=== PATIENT | male | born 1960 | race Caucasian/White ===

== ENCOUNTER → 2020-02-25 | Outpatient (CLI) | payer OTHER ==
[2020-02-25 14:25] VITALS: BP 134/79; PULSE 64; RESP 16; TEMP 98.2; BMI 52.4
--- NOTE | 2020-02-25 15:12 | P.HPBAR ---
Bariatric H&P - History & Physicial H&P Date: 02/25/20 History & Physicial: Visit/CC: Initial Visit Patient initial contact: Initial weight: 156.092 kg Initial weight in pounds: 344.13 Height: 5 ft 8 in Initial BMI: 52.3 Last weight: Current weight: 156.489 kg Current weight in pounds: 345.00 Current BMI: 52.4 [place] body weight (based on NIH guidelines): 69.853 kg Excess body weight loss: The patient is a 59 year-old M who presents for Bariatric Assessment. This is a 59-year-old male presents today for preoperative consultation for sleeve gastrectomy. Patient is morbidly obese. His BMI is 53. He has had lifetime problems obesity. Past Medical History Smoking Status: Former smoker Surgical - Exam Vital Signs Temp Pulse Resp BP 98.2 F 64 16 134/79 02/25/20 14:12 02/25/20 14:12 02/25/20 14:12 02/25/20 14:12 - General well developed, well nourished, no distress - Eyes PERRL - ENT normal pinna - Neck no masses - Respiratory normal expansion - Cardiovascular Rhythm: regular - Abdomen Abdomen: soft, non tender Bariatric Assessment & Plan Plan: RBC, BMI of 53. Patient will undergo EGD. We went over the risks and benefits of sleeve gastrectomy. He he has an excellent understanding of the gastric sleeve. Facial follow-up after his EGD performed. Bariatric Checklist Checklist: Plan: Checklist: EGD: 1. Hiatal hernia: 2. H. Pylori: HgbA1c: Vitamin D: Smoking: Primary care physician referral: [facility] Psychiatry clearance: Cardiology clearance: Sleep study: Diet journal: VTE risk score: VTE risk level: Rehab needs at discharge:
== END | disposition home or self-care (01) ==
LOC: BARWHC3 13:56
PROVIDERS: ATTEND Surgery
DX: Z48.815 Encounter for surgical aftercare following surgery on the digestive system (principal); E66.01 Morbid (severe) obesity due to excess calories; Z68.43 Body mass index [BMI] 50.0-59.9, adult; Z98.84 Bariatric surgery status
CPT/HCPCS: 99201

== ENCOUNTER → 2020-02-29 | Outpatient (CLI) | payer OTHER ==
[2020-02-29 11:51] LABS: HCT 45.2 % (39.0-53.0); HGB 13.8 gm/dL (13.0-17.5); Hypochromasia Slight; MCH 26.9 pg (25.0-35.0); MCHC 30.6 g/dL (31.0-37.0); MCV 88.1 fL (80.0-100.0); Mean Platelet Volume 9.2; Platelet Count 213 k/uL (150-450); RBC 5.13 m/uL (4.30-5.90); RDW 13.7 % (11.5-15.5); WBC 7.7 k/uL (3.8-10.6)
[2020-02-29 16:36] LABS: African American GFR (CKD) 95.7 (60.0-200.0); Non-African American GFR(CKD) 82.6 (60.0-200.0); Potassium 4.9 mmol/L (3.5-5.5); Total Bilirubin 0.5 mg/dL (0.2-1.2)
[2020-02-29 17:28] LABS: Folate, Serum 11.8 ng/mL
[2020-02-29 20:34] LABS: Hemoglobin A1C 6.6 % (4.0-6.0)
== END | disposition home or self-care (01) ==
LOC: LABWHC1 10:26
PROVIDERS: ATTEND Surgery
DX: E88.81 Metabolic syndrome and other insulin resistance (principal); E55.9 Vitamin D deficiency, unspecified
CPT/HCPCS: 36415; 80053; 82306; 82607; 82746; 83036; 84425; 85027; 93005

== ENCOUNTER 2020-03-21 06:44 | Day surgery (SDC) | payer OTHER ==
[2020-03-19 15:41] VITALS: BMI 49.4
[~2020-03-21 06:44] MED LIST: LACTATED RINGERS 1,000 ML IV SCH; LIDOCAINE 1% (10MG/ML) FOR IV START INTRADERMA PRN
[2020-03-21 07:16] VITALS: PULSE 81; TEMP 97.7
[2020-03-21 07:23] LABS: Glucose,Whole Blood 200 mg/dL (75-99)
[2020-03-21] MEDS ORDERED: MIDAZOLAM 2 MG/2 ML VIAL ONE (07:53)
[2020-03-21] MEDS ORDERED: LIDOCAINE 1% INJ 10MG/ML (20 ML MDV) ONE (07:53)
[2020-03-21] MEDS ORDERED: GLYCOPYRROLATE 0.2 MG/ML 2 ML VIAL ONE (07:53)
[2020-03-21] MEDS ORDERED: PROPOFOL 10 MG/ML 20 ML VIAL IV ONE (07:53)
[2020-03-21] MEDS ORDERED: KETAMINE 10 MG/ML 20 ML VIAL ONE (07:53)
--- NOTE | 2020-03-21 07:57 | P.GSHP ---
History of Present Illness H&P Date: 03/21/20 Chief Complaint: GERD, morbid obesity This a 59-year-old male undergoing workup for sleeve gastrectomy. Patient presents today for EGD. He's had issues with GERD. Past Medical History Past Medical History: Diabetes Mellitus, Hypertension, Thyroid Disorder History of Any Multi-Drug Resistant Organisms: None Reported Past Surgical History: Hernia Repair, Orthopedic Surgery Additional Past Surgical History / Comment(s): BILAT KNEE SX. RFA LOWER BACK NERVES. COLONOSCOPY Past Anesthesia/Blood Transfusion Reactions: No Reported Reaction Smoking Status: Former smoker - Past Family History Mother Family Medical History: Cancer Medications and Allergies Home Medications Medication Instructions Recorded Confirmed Type Ergocalciferol (Vitamin D2) 5,000 mg PO DAILY 03/06/20 03/19/20 History [Vitamin D2] Levothyroxine Sodium [Synthroid] 75 mcg PO DAILY 03/06/20 03/19/20 History Losartan [Cozaar] 50 mg PO DAILY 03/06/20 03/19/20 History glipiZIDE [Glucotrol] 10 mg PO BID 03/06/20 03/19/20 History metFORMIN HCL [Glucophage] 500 mg PO BID 03/06/20 03/19/20 History Allergies Allergy/AdvReac Type Severity Reaction Status Date / Time Penicillins Allergy Rash/Hives Verified 03/21/20 07:06 Surgical - Exam Vital Signs Temp Pulse Resp BP Pulse Ox 97.7 F 81 16 154/72 96 03/21/20 07:14 03/21/20 07:14 03/21/20 07:14 03/21/20 07:14 03/21/20 07:14 BMI 50 - General well developed, well nourished, no distress - Eyes PERRL - ENT normal pinna - Neck no masses - Respiratory normal expansion - Cardiovascular Rhythm: regular - Abdomen Abdomen: soft, non tender Results - Labs Abnormal Lab Results - Last 24 Hours (Table) 03/21/20 Range/Units 07:19 POC Glucose (mg/dL) 200 H (75-99) mg/dL Assessment and Plan Assessment: GERD we'll perform EGD Morbid obesity
--- NOTE | 2020-03-21 08:05 | P.OP ---
Date of Procedure: 03/21/20 Preoperative Diagnosis: Morbid obesity GERD Postoperative Diagnosis: Morbid obesity Antral gastritis Procedure(s) Performed: EGD Anesthesia: MAC Surgeon: Anton Calderon Pathology: other (Antrum) Condition: stable Disposition: PACU Description of Procedure: Patient's placed on the endoscopy table in the lateral position. He received IV sedation. The gastroscope placed oropharynx passed in the esophagus and into the stomach. Scope was then placed through the pylorus. The first and second portion of the duodenum appeared normal. Scope was then brought back the antrum this is mildly inflamed. A biopsies performed. Scope was retroflexed and remainder the stomach appeared normal. The GE junction was at 40 cm. There was no significant hiatal hernia The distal esophagus appeared normal. The proximal esophagus appeared normal. Scope was withdrawn for patient.
[2020-03-21 08:08] VITALS: BP 163/83; RESP 14
== END 2020-03-21 08:40 | disposition home or self-care (01) ==
LOC: ORWHC2ENDO 06:44
PROVIDERS: ATTEND Surgery
DX: K29.70 Gastritis, unspecified, without bleeding (principal); K21.9 Gastro-esophageal reflux disease without esophagitis; K31.9 Disease of stomach and duodenum, unspecified; I10 Essential (primary) hypertension; I25.2 Old myocardial infarction; E11.9 Type 2 diabetes mellitus without complications; E07.9 Disorder of thyroid, unspecified; Z98.890 Other specified postprocedural states; Z87.891 Personal history of nicotine dependence; E66.01 Morbid (severe) obesity due to excess calories; Z79.890 Hormone replacement therapy; Z79.84 Long term (current) use of oral hypoglycemic drugs; Z79.899 Other long term (current) drug therapy; Z80.9 Family history of malignant neoplasm, unspecified; Z88.0 Allergy status to penicillin; Z68.42 Body mass index [BMI] 45.0-49.9, adult
CPT/HCPCS: 88305; 43239; J2250; J2001; J2704

== ENCOUNTER → 2020-04-14 | Outpatient (CLI) | payer OTHER ==
[2020-04-14 14:03] VITALS: BP 150/86; PULSE 85; TEMP 98; BMI 52.1
--- NOTE | 2020-04-14 14:38 | P.HPBAR ---
Bariatric H&P - History & Physicial H&P Date: 04/14/20 History & Physicial: Visit/CC: sleeve presurgical Patient initial contact: Initial weight: 156.092 kg Initial weight in pounds: 344.12 Height: 5 ft 8.5 in Initial BMI: 51.5 Last weight: Current weight: 157.85 kg Current weight in pounds: 348.00 Current BMI: 52.1 [place] body weight (based on NIH guidelines): 71.214 kg Excess body weight loss: The patient is a 59 year-old M who presents for Bariatric Assessment. She presents today for presurgical consultation. His BMI 62. He is morbidly obese. He has had many comorbidities. Past Medical History Past Medical History: Diabetes Mellitus, Hypertension, Thyroid Disorder History of Any Multi-Drug Resistant Organisms: None Reported Past Surgical History: Hernia Repair, Orthopedic Surgery Additional Past Surgical History / Comment(s): BILAT KNEE SX. RFA LOWER BACK NERVES. COLONOSCOPY Past Anesthesia/Blood Transfusion Reactions: No Reported Reaction Past Psychological History: No Psychological Hx Reported Smoking Status: Former smoker Past Alcohol Use History: Occasional Additional Past Alcohol Use History / Comment(s): QUIT SMOKING 2017 Past Drug Use History: Marijuana Additional Drug Use History / Comment(s): SMOKES MARIJUANA SOMETIMES-INSTRUCTED TO REFRAIN FROM USE FOR AT LEAST 24 HOURS PRIOR TO PROCEDURE - Past Family History Mother Family Medical History: Cancer Surgical - Exam Vital Signs Temp Pulse BP 98 F 85 150/86 04/14/20 13:59 04/14/20 13:59 04/14/20 13:59 - General well developed, well nourished, no distress - Eyes PERRL - ENT normal pinna - Neck no masses - Respiratory normal expansion - Cardiovascular Rhythm: regular - Abdomen Abdomen: soft, non tender Bariatric Assessment & Plan Plan: Morbid obesity. BMI is 52. Patient will be authorize for sleeve gastrectomy. We went over the risks and benefits of the sleeve gastrectomy patient. He has an excellent understanding of risk including gastric staple line disruption, bleeding or scarring. Bariatric Checklist Checklist: Plan: Checklist: EGD: 1. Hiatal hernia: 2. H. Pylori: HgbA1c: Vitamin D: Smoking: Primary care physician referral: [facility] Psychiatry clearance: Cardiology clearance: Sleep study: Diet journal: VTE risk score: VTE risk level: Rehab needs at discharge:
== END | disposition home or self-care (01) ==
LOC: BARWHC3 08:38
PROVIDERS: ATTEND Surgery
DX: E66.01 Morbid (severe) obesity due to excess calories (principal); Z71.3 Dietary counseling and surveillance; Z68.43 Body mass index [BMI] 50.0-59.9, adult
CPT/HCPCS: 97804; 99211

== ENCOUNTER → 2020-05-14 | Outpatient (CLI) | payer OTHER ==
[2020-05-14 16:22] LABS: Basophils # (A) 0.1 k/uL (0-0.2); Basophils % (A) 1 %; Eosinophils # (A) 0.2 k/uL (0-0.7); Eosinophils % (A) 3 %; HCT 48.3 % (39.0-53.0); HGB 15.3 gm/dL (13.0-17.5); Lymphocytes # (A) 2.2 k/uL (1.0-4.8); Lymphocytes % (A) 25 %; MCH 27.8 pg (25.0-35.0); MCHC 31.6 g/dL (31.0-37.0); Mean Platelet Volume 8.7; Monocytes # (A) 0.7 k/uL (0-1.0); Monocytes % (A) 8 %; Neutrophils # (A) 5.5 k/uL (1.3-7.7); Neutrophils % (A) 63 %; Platelet Count 203 k/uL (150-450); RBC 5.49 m/uL (4.30-5.90); RDW 13.3 % (11.5-15.5); WBC 8.8 k/uL (3.8-10.6)
[2020-05-14 16:30] LABS: ALT 27 U/L (4-49); AST 24 U/L (17-59); African American GFR (CKD) >90 (>60 ml/min/1.73 sqM); Albumin 4.2 g/dL (3.5-5.0); Alkaline Phosphatase 55 U/L (38-126); Anion Gap 6 mmol/L; Blood Urea Nitrogen 17 mg/dL (9-20); Calcium 9.5 mg/dL (8.4-10.2); Carbon Dioxide 28 mmol/L (22-30); Chloride 103 mmol/L (98-107); Glucose 128 mg/dL (74-99); Non-African American GFR(CKD) >90 (>60 ml/min/1.73 sqM); Potassium 4.7 mmol/L (3.5-5.1); Sodium 137 mmol/L (137-145); Total Bilirubin 0.7 mg/dL (0.2-1.3); Total Protein 7.1 g/dL (6.3-8.2)
== END | disposition home or self-care (01) ==
LOC: LABPAT 15:14
PROVIDERS: ATTEND Surgery
DX: Z01.818 Encounter for other preprocedural examination (principal)
CPT/HCPCS: 80053; 85025

== ENCOUNTER 2020-05-28 07:40 | Inpatient (IN) | payer OTHER ==
[~2020-05-28 07:40] MED LIST changes: +DEXAMETHASONE SOD PHOSPHATE 4 MG/ML 1 ML VIAL IV ONE; +ENOXAPARIN 40 MG/0.4 ML SYRINGE SQ ONE; +ONDANSETRON 4 MG/2 ML VIAL IVP ONE; +ceFAZolin 3 GM in SODIUM CHLORIDE 0.9% 100 ML IVPB ONE
[2020-05-28 09:19] LABS: Glucose,Whole Blood 134 mg/dL (75-99)
--- NOTE | 2020-05-28 09:53 | P.GSHP ---
History of Present Illness H&P Date: 05/28/20 Chief Complaint: Morbid obesity, BMI 48 This is a 60-year-old male with lifetime problems obesity. Patient presents today for laparoscopic sleeve gastrectomy. Patient aware the risks of surgery including conversion to the open procedure and injury to the stomach liver sple en. Past Medical History Past Medical History: Diabetes Mellitus, Hyperlipidemia, Hypertension, Liver Disease, Osteoarthritis (OA), Sleep Apnea/CPAP/BIPAP, Thyroid Disorder Additional Past Medical History / Comment(s): varicose vein, fatty liver, heptitis C 15 yrs ago-tx History of Any Multi-Drug Resistant Organisms: None Reported Past Surgical History: Hernia Repair, Orthopedic Surgery Additional Past Surgical History / Comment(s): arthroscopy taurus knees, pain clinic procedure, Past Anesthesia/Blood Transfusion Reactions: No Reported Reaction Smoking Status: Former smoker - Past Family History Mother Family Medical History: Cancer Additional Family Medical History / Comment(s): breast Medications and Allergies Home Medications Medication Instructions Recorded Confirmed Type Ergocalciferol (Vitamin D2) 5,000 mg PO DAILY 03/06/20 05/28/20 History [Vitamin D2] Levothyroxine Sodium [Synthroid] 75 mcg PO DAILY 03/06/20 05/28/20 History Losartan [Cozaar] 50 mg PO DAILY 03/06/20 05/28/20 History glipiZIDE [Glucotrol] 10 mg PO BID 03/06/20 05/28/20 History metFORMIN HCL [Glucophage] 500 mg PO BID 03/06/20 05/28/20 History Meloxicam(Dose Unknown) 1 tab PO DIRECTED PRN 05/26/20 05/28/20 History Allergies Allergy/AdvReac Type Severity Reaction Status Date / Time latex Allergy Itching Verified 05/28/20 09:10 Penicillins Allergy Unknown Verified 05/28/20 09:10 Childhood Surgical - Exam Vital Signs Temp Pulse Resp BP Pulse Ox 97.6 F 80 18 173/84 95 05/28/20 08:56 05/28/20 08:56 05/28/20 08:56 05/28/20 08:56 05/28/20 08:56 - General well developed, well nourished, no distress - Eyes PERRL - ENT normal pinna - Neck no masses - Respiratory normal expansion - Cardiovascular Rhythm: regular - Abdomen Abdomen: soft, non tender Results - Labs Abnormal Lab Results - Last 24 Hours (Table) 05/28/20 Range/Units 09:15 POC Glucose (mg/dL) 134 H (75-99) mg/dL Assessment and Plan Assessment: Morbid obesity, BMI 48. Patient will undergo laparoscopic sleeve gastrectomy today.
[2020-05-28] MEDS ORDERED: WATER FOR INJECTION, STERILE 10 ML VIAL IV ONE (10:15)
[2020-05-28] MEDS ORDERED: SUCCINYLCHOLINE CHLORIDE VIAL 200 MG/10 ML VIAL IV ONE (10:15)
[2020-05-28] MEDS ORDERED: HYDROmorphone (PF) 1 MG/ML ONE (10:15)
[2020-05-28] MEDS ORDERED: KETAMINE 10 MG/ML 20 ML VIAL ONE (10:15)
[2020-05-28] MEDS ORDERED: NEOSTIGMINE 1 MG/ML 10 ML VIAL ONE (10:15)
[2020-05-28] MEDS ORDERED: PROPOFOL 10 MG/ML 20 ML VIAL IV ONE (10:15)
[2020-05-28] MEDS ORDERED: ROCURONIUM 10 MG/ML (10 ML VIAL) IV ONE (10:15)
[2020-05-28] MEDS ORDERED: GLYCOPYRROLATE 0.2 MG/ML 2 ML VIAL ONE (10:15)
[2020-05-28] MEDS ORDERED: KETOROLAC 15 MG/ML 1 ML VIAL ONE (10:15)
[2020-05-28] MEDS ORDERED: ePHEDrine SULFATE/0.9% NACL/PF 50 MG/5 ML SYRINGE IV ONE (10:15)
[2020-05-28] MEDS ORDERED: LIDOCAINE 1% INJ 10MG/ML (20 ML MDV) ONE (10:15)
[2020-05-28] MEDS ORDERED: fentaNYL (PF) 50 MCG/ML 2 ML AMP ONE (10:15)
[2020-05-28] MEDS ORDERED: MIDAZOLAM 2 MG/2 ML VIAL ONE (10:15)
[2020-05-28] MEDS ORDERED: BUPIVACAINE (PF) 0.25% 30 ML VIAL SQ ONE (10:49)
[2020-05-28] MEDS ORDERED: LACTATED RINGERS 1,000 ML IV ONE (11:30)
[2020-05-28] MEDS ORDERED: ONDANSETRON 4 MG/2 ML VIAL IVP PRN (11:39)
[2020-05-28] MEDS ORDERED: NALOXONE 0.4 MG/ML 1 ML VIAL IV PRN (11:39)
[2020-05-28] MEDS ORDERED: diphenhydrAMINE 50 MG/ML 1 ML VIAL IVP PRN (11:39)
[2020-05-28] MEDS ORDERED: HYOSCYAMINE ORAL DROPS 1.875 MG/15 ML BOTTLE PO PRN (11:39)
--- NOTE | 2020-05-28 11:39 | P.OP ---
Date of Procedure: 05/28/20 Preoperative Diagnosis: Morbid obesity, BMI 48 Postoperative Diagnosis: Morbid obesity Procedure(s) Performed: Laparoscopic sleeve gastrectomy Anesthesia: DARRICK Surgeon: Anton Calderon Estimated Blood Loss (ml): 10 Pathology: other Condition: stable Disposition: PACU Description of Procedure: The patient was placed on the operating room table in the supine position. She received general anesthesia and then was placed in dorsal lithotomy position. Her abdomen was prepped and draped in sterile fashion. The skin incision sites were anesthetized 1% local Xylocaine. And then the skin was incised with an 11 blade in the left lateral position. Using a blade less trocar under direct visualization the peritoneal cavity was entered. The abdomen was insufflated and then a 5 mm laparoscope was placed into the peritoneal cavity. A 5 mm trocar was placed in the right epigastric, and right lateral position. A 15 mm trocar was placed in the supra-umbilical position and another 5 mm trocar was placed in the left lateral position. The left lateral lobe of the liver was retracted. The stomach was visualized. The greater curvature of the stomach was then dissected using the Harmonic scissors. The dissection occurred approximately 5 cm from the pylorus to the level of the left zbigniew. There was no hiatal hernia seen. At this point a 40-Marshallese bougie dilator was placed the oropharynx and passed into the esophagus and into the stomach by the LAND SURVEYING MANAGER. The sleeve gastrectomy was performed by using the powered echelon stapler with a seam guard buttress material. Sequential firings of the stapler were performed. The gastric remnant was then brought out through the 15 mm trocar site. The dilator was withdrawn. And a orogastric tube was replaced into the stomach. The stomach was insufflated with 200 mL of methylene blue normal saline. There was no evidence of extravasation. The abdomen was irrigated there is no bleeding seen. The Cody-Hyacinth device was used to close the 15 mm trocar with 0 Vicryl. Skin was closed with interrupted 3-0 Monocryl sutures once the trochars withdrawn. Dermabond dressing was applied. Patient was sent to recovery in stable condition.
[2020-05-28 11:51] LABS: Glucose,Whole Blood 191 mg/dL (75-99)
[2020-05-28] MEDS: HYDROmorphone 1 MG/ML 1 ML SYRINGE IVP ONE ×2 (12:14→12:19)
[2020-05-28] MEDS: ALBUTEROL NEBULIZED 2.5 MG/3 ML INHALATION SCH ×3 (13:35→21:15)
[2020-05-28] MEDS: HYDROmorphone 1 MG/ML 1 ML SYRINGE IVP PRN (14:06)
[2020-05-28] MEDS: KETOROLAC 15 MG/ML 1 ML VIAL IVP SCH ×3 (14:09→23:30)
--- NOTE | 2020-05-28 15:03 | XR ---
EXAMINATION TYPE: XR chest 1V portable DATE OF EXAM: 05/28/2020 Comparison: None Clinical History: 60-year-old male cough Findings: Heart limits of normal in size. Mild interstitial opacities throughout. Bands of atelectasis at the l eft base. No pleural effusion. Impression: Bilateral interstitial densities could represent bronchitis, chronic asthma, or atypical pneumonias. Clinically correlate.
[2020-05-28 16:36] LABS: Glucose,Whole Blood 185 mg/dL (75-99)
[2020-05-28 16:53] LABS: Basophils % (A) 0 %; Eosinophils % (A) 0 %; HGB 14.2 gm/dL (13.0-17.5); Lymphocytes # (A) 0.5 k/uL (1.0-4.8); Lymphocytes % (A) 4 %; MCH 27.6 pg (25.0-35.0); MCHC 31.6 g/dL (31.0-37.0); MCV 87.4 fL (80.0-100.0); Mean Platelet Volume 8.5; Monocytes # (A) 0.8 k/uL (0-1.0); Monocytes % (A) 6 %; Neutrophils # (A) 10.6 k/uL (1.3-7.7); Neutrophils % (A) 89 %; Platelet Count 200 k/uL (150-450); RBC 5.16 m/uL (4.30-5.90); RDW 13.3 % (11.5-15.5)
[2020-05-28 17:05] LABS: African American GFR (CKD) >90 (>60 ml/min/1.73 sqM); Anion Gap 7 mmol/L; Blood Urea Nitrogen 14 mg/dL (9-20); Calcium 8.7 mg/dL (8.4-10.2); Carbon Dioxide 27 mmol/L (22-30); Chloride 103 mmol/L (98-107); Glucose 203 mg/dL (74-99); Non-African American GFR(CKD) >90 (>60 ml/min/1.73 sqM); Potassium 4.8 mmol/L (3.5-5.1); Sodium 137 mmol/L (137-145)
[2020-05-28] MEDS: SIMETHICONE 40 MG/0.6 ML DROPS 2,000 MG/30 ML BOTTLE PO PRN (17:15)
--- NOTE | 2020-05-28 18:11 | CONS ---
CONSULTATION DATE OF SERVICE: 05/28/2020 REASON FOR CONSULTATION: Advice regarding diabetes mellitus, hypertension and hyperlipidemia, requested by Dr. Calderon. HISTORY OF PRESENT ILLNESS: This 60-year-old gentleman with a past medical history of diabetes, hypertension, hyperlipidemia, history of liver disease, history of sleep apnea, hypothyroidism, underwent laparoscopic sleeve gastrectomy for severe morbid obesity. The patient is being closely monitored. There is no history of any chest pain, palpitation, headache, loss of consciousness, seizures. The patient had some hypoxia with pulse ox going down to 80s and 70s while sleeping. Patient has a history of obstructive sleep apnea. There is no history of any fever, rigor or chills at this time. PAST MEDICAL HISTORY: History of hypertension, hyperlipidemia, history of diabetes mellitus, history of liver disease, history of DJD, sleep disorder, hypothyroidism. HOME MEDICATIONS: Glucophage, Glucotrol, meloxicam, Cozaar, Synthroid, vitamin D2. ALLERGIES: LATEX and PENICILLIN. FAMILY HISTORY: History of breast cancer in the family. SOCIAL HISTORY: Previous history of smoking. No history of alcohol intake. REVIEW OF SYSTEMS: ENT: No diminished hearing. No diminished vision. CARDIOVASCULAR SYSTEM: No angina, palpitations. RESPIRATORY SYSTEM: As mentioned earlier. GI: As mentioned earlier. : No dysuria or retention. NERVOUS SYSTEM: No numbness, weakness. ALLERGY/IMMUNOLOGY: No asthma, hayfever. MUSCULOSKELETAL: As mentioned earlier. HEMATOLOGY/ONCOLOGY: No history of anemia. ENDOCRINE: Diabetes, hypothyroidism. CONSTITUTIONAL: As mentioned earlier. DERMATOLOGY: Negative. RHEUMATOLOGY: Negative. PSYCHIATRY: As mentioned earlier. PHYSICAL EXAMINATION: Patient is alert, oriented x3. Pulse 75, blood pressure 159/69, respiration 18, temperature 98 degrees, pulse ox 94% on room air. HEENT: Conjunctivae normal. NECK: No jugular venous distention. CARDIOVASCULAR SYSTEM: S1, S2 muffled. RESPIRATORY SYSTEM: Breath sounds diminished at the bases. A few scattered rhonchi and crackles. ABDOMEN: Soft. Status post surgery. NERVOUS SYSTEM: No focal deficit. LABS: Glucose 191. Otherwise, the preoperative labs showed hematology within normal limits. The chemistry shows also hemoglobin A1c at 6.1, ASSESSMENT: 1. Status post sleeve gastrectomy for morbid obesity. 2. Postoperative hypoxia, as expected. 3. Diabetes mellitus, type 2. 4. Hypertension. 5. Hyperlipidemia. 6. Degenerative joint disease. 7. Sleep apnea. 8. Varicose veins. 9. Fatty liver. 10.History of hepatitis C. 11.History of hernia repair. 12.History of degenerative joint disease. 13.Remote history of nicotine dependence. 14.Obesity with body mass index of 48.2. 15.History of tetrahydrocannabinol. RECOMMENDATIONS AND DISCUSSION: In this 60-year-old gentleman who presented after surgery, at this time I recommend to continue current medications, continue symptomatic treatment. Otherwise I recommend a course of bronchodilator treatment until the pulse oxygenation is normal. The patient is slightly drowsy at this time. Avoid too much sedation. I also recommended a chest x-ray, which showed bibasilar atelectasis. I would also cut down the IV fluids. Check a troponin and BNP also. We will follow the patient closely. Further recommendations to follow. The patient may be asked to follow with his primary physician closely after discharge. Thank you, Dr. Calderon, for letting us participate in the care of this patient. MMMIKEL / BHASKARN: [id number] / ALFIE
[2020-05-28 20:24] LABS: Glucose,Whole Blood 199 mg/dL (75-99)
[2020-05-28] MEDS: glipiZIDE 10 MG TAB PO SCH (20:29)
[2020-05-28] MEDS: ceFAZolin 3 GM in SODIUM CHLORIDE 0.9% 100 ML IVPB SCH (20:49)
[2020-05-29] MEDS: ceFAZolin 3 GM in SODIUM CHLORIDE 0.9% 100 ML IVPB SCH ×3 (04:10→20:17)
[2020-05-29] MEDS: KETOROLAC 15 MG/ML 1 ML VIAL IVP SCH ×3 (05:50→17:47)
[2020-05-29] MEDS: LEVOTHYROXINE 75 MCG TAB PO SCH (05:51)
[2020-05-29 06:43] LABS: Basophils % (A) 0 %; Eosinophils % (A) 0 %; HCT 44.2 % (39.0-53.0); HGB 13.9 gm/dL (13.0-17.5); Lymphocytes # (A) 0.9 k/uL (1.0-4.8); Lymphocytes % (A) 9 %; MCH 27.6 pg (25.0-35.0); MCHC 31.4 g/dL (31.0-37.0); MCV 87.6 fL (80.0-100.0); Mean Platelet Volume 8.8; Monocytes # (A) 0.8 k/uL (0-1.0); Monocytes % (A) 8 %; Neutrophils % (A) 82 %; Platelet Count 218 k/uL (150-450); RBC 5.04 m/uL (4.30-5.90); RDW 13.2 % (11.5-15.5); WBC 9.8 k/uL (3.8-10.6)
[2020-05-29 07:04] LABS: Glucose,Whole Blood 181 mg/dL (75-99)
[2020-05-29] MEDS: metFORMIN 500 MG TAB PO SCH ×2 (07:36→16:31)
[2020-05-29] MEDS: glipiZIDE 10 MG TAB PO SCH ×2 (07:39→20:17)
[2020-05-29] MEDS: PANTOPRAZOLE 40 MG/10 ML VIAL IV SCH (07:42)
[2020-05-29] MEDS: ENOXAPARIN 40 MG/0.4 ML SYRINGE SQ SCH (07:44)
[2020-05-29] MEDS: LOSARTAN 50 MG TAB PO SCH (07:44)
[2020-05-29] MEDS ORDERED: 1: MVI, ADULT NO.4 WITH VIT K 10 ML, THIAMINE 100 MG, FOLIC ACID 1 MG, POTASSIUM CHLORID IV SCH ×6 (08:00)
[2020-05-29] MEDS: ALBUTEROL NEBULIZED 2.5 MG/3 ML INHALATION SCH ×4 (08:26→20:07)
[2020-05-29 10:15] LABS: African American GFR (CKD) 95.1 (60.0-200.0); Anion Gap 7.4 mmol/L (4.00-12.00); Calcium 8.9 mg/dL (8.7-10.3); Carbon Dioxide 25.6 mmol/L (21.6-31.8); Magnesium 1.9 mg/dL (1.5-2.4); Phosphorus 3.2 mg/dL (2.4-5.1)
--- NOTE | 2020-05-29 11:03 | FL ---
EXAMINATION TYPE: FL UGI DATE OF EXAM: 05/29/2020 COMPARISON: NONE HISTORY: Postop bariatric surgery, gastric sleeve TECHNIQUE: A single contrast UGI study is performed. FINDINGS: 31 seconds fluoroscopy time, 22 intraoperative images The esophagus shows normal motility a nd emptying into the stomach. No evidence of hiatal hernia or stricture noted. Contrast courses through the gastric remnant. There is filling of the small bowel. No evident leak or obstruction to flow. The duodenal bulb, sweep, and proximal small bowel loops are unremarkable. IMPRESSION: Postop findings without complication.
[2020-05-29 11:33] LABS: Glucose,Whole Blood 151 mg/dL (75-99)
[2020-05-29 13:48] VITALS: BMI 48.2
[2020-05-29] MEDS ORDERED: HYDROcodone/APAP 5-325MG 1 EACH TAB PO PRN (14:04)
--- NOTE | 2020-05-29 14:12 | P.DS ---
Providers Date of admission: 05/28/20 08:19 Expected date of discharge: 05/29/20 Attending physician: Anton Calderon Consults: 05/28/20 11:39 Consult Physician Routine Consulting Provider: Eloise Andujar Consult Reason/Comments: Medical management Do you want consulting provider notified?: Yes Primary care physician: Stated None Hospital Course: Discharge diagnosis 1. Morbid obesity status post laparoscopic sleeve gastrectomy Hospital course This is a 60-year-old male with lifetime problems obesity. He is status post laparoscopic sleeve gastrectomy. He tolerated surgery well. Upper GI shows no evidence of leak or obstruction. He is tolerating a bariatric clear diet. Pain is controlled. Denies any nausea vomiting. He has been ambulating. He is afebrile. He is stable for discharge. Physician Furnace Process Supervisor note has been reviewed by physician. Signing provider agrees with the documented findings, assessment, and plan of care. Patient Condition at Discharge: Stable Plan - Discharge Summary Discharge Rx Participant: Yes New Discharge Prescriptions: New bisacodyL [Dulcolax] 5 mg PO DAILY PRN #10 tablet. PRN Reason: Constipation Simethicone 40 mg/0.6 ml Drops [Mylicon Drops] 40 mg PO PCHS PRN #30 ml PRN Reason: Gas Hydrocodone/Acetaminophen [[place] 5-325] 1 tab PO Q4HR PRN 3 Days #18 tab PRN Reason: Pain Omeprazole [PriLOSEC] 40 mg PO DAILY #30 capsule. Ondansetron Odt [Zofran Odt] 4 mg PO Q8HR PRN #9 tab PRN Reason: Nausea Continue metFORMIN HCL [Glucophage] 500 mg PO BID glipiZIDE [Glucotrol] 10 mg PO BID Levothyroxine Sodium [Synthroid] 75 mcg PO DAILY Losartan [Cozaar] 50 mg PO DAILY Discontinued Ergocalciferol (Vitamin D2) [Vitamin D2] 5,000 mg PO DAILY Meloxicam(Dose Unknown) 1 tab PO DIRECTED PRN PRN Reason: Pain Discharge Medication List Levothyroxine Sodium [Synthroid] 75 mcg PO DAILY 03/06/20 [History] Losartan [Cozaar] 50 mg PO DAILY 03/06/20 [History] glipiZIDE [Glucotrol] 10 mg PO BID 03/06/20 [History] metFORMIN HCL [Glucophage] 500 mg PO BID 03/06/20 [History] Hydrocodone/Acetaminophen [Wilson 5-325] 1 tab PO Q4HR PRN 3 Days #18 tab 05/29/20 [Rx] Omeprazole [PriLOSEC] 40 mg PO DAILY #30 capsule. 05/29/20 [Rx] Ondansetron Odt [Zofran Odt] 4 mg PO Q8HR PRN #9 tab 05/29/20 [Rx] Simethicone 40 mg/0.6 ml Drops [Mylicon Drops] 40 mg PO PCHS PRN #30 ml 05/29/20 [Rx] bisacodyL [Dulcolax] 5 mg PO DAILY PRN #10 tablet. 05/29/20 [Rx] Follow up [facility]ment(s[facility]Ref[facility] [facility] [place] [facility] [place] [facility] Week Activity/Diet/Wound Care/Special Instructions: No driving while taking Wilson No lifting over 10 pounds You may shower. No soaking or tub baths for 2 weeks Very light activity until you are reevaluated at your follow up appointment with your surgeon No carbonated beverages or straws Discharge Disposition: HOME SELF-CARE
--- NOTE | 2020-05-29 16:10 | PN ---
PROGRESS NOTE DATE OF SERVICE: 05/29/2020 This is a 60-year-old gentleman who was admitted after sleeve gastrectomy for morbid obesity. Improving significantly. No chest pain. No palpitations. No fever. PHYSICAL EXAMINATION: Alert and oriented x3. Pulse is 88. The blood pressure is 130/61, respiration 20, temperature 98.2, pulse ox 98% on room air. HEENT: Conjunctivae normal. NECK: No jugular venous distension. CARDIOVASCULAR SYSTEM: S1, S2, muffled. RESPIRATION: Breath sounds diminished at the bases, no rhonchi, no crackles. ABDOMEN: Soft, nontender. LEGS: No edema, no swelling. NERVOUS SYSTEM: No focal deficits. LABS: CBC, BMP within normal limits. ASSESSMENT: 1. Status post sleeve gastrectomy for morbid obesity. 2. Postoperative hypoxia as expected, improved. 3. Diabetes mellitus type 2. 4. Hypertension. 5. Hyperlipidemia. 6. History of DJD. 7. History of sleep apnea. 8. History of varicose veins. 9. Fatty liver. 10.History hepatitis C. 11.History of hernia repair. 12.History of degenerative joint disease. 13.History of nicotine dependence. 14.Obesity with body mass index of 48.1. 15.History of THC. RECOMMENDATION: Recommend to continue current medications, symptomatic treatment. Otherwise at this time, I would recommend current medications, incentive spirometry. I would also recommend a D-dimer. If the D-dimer is positive, I would recommend a CT angio of the chest also. Further recommendations to follow. MMADRIANNA / BHASKARN: [id number] /
[2020-05-29] MEDS: HYDROmorphone 1 MG/ML 1 ML SYRINGE IVP PRN (16:34)
[2020-05-29] MEDS: SIMETHICONE 40 MG/0.6 ML DROPS 2,000 MG/30 ML BOTTLE PO PRN (16:35)
[2020-05-29 16:53] LABS: Glucose,Whole Blood 145 mg/dL (75-99)
[2020-05-29 19:49] VITALS: RESP 17
[2020-05-29 20:43] LABS: Glucose,Whole Blood 148 mg/dL (75-99)
[2020-05-30] MEDS: KETOROLAC 15 MG/ML 1 ML VIAL IVP SCH ×2 (00:05→05:49)
[2020-05-30] MEDS: ceFAZolin 3 GM in SODIUM CHLORIDE 0.9% 100 ML IVPB SCH ×2 (02:25→12:19)
[2020-05-30] MEDS: LEVOTHYROXINE 75 MCG TAB PO SCH (05:49)
[2020-05-30] MEDS: ALBUTEROL NEBULIZED 2.5 MG/3 ML INHALATION SCH ×2 (06:52→10:51)
[2020-05-30 07:28] LABS: Glucose,Whole Blood 132 mg/dL (75-99)
[2020-05-30 07:43] VITALS: BP 138/66; TEMP 98.7
[2020-05-30] MEDS: glipiZIDE 10 MG TAB PO SCH (09:04)
[2020-05-30] MEDS: LOSARTAN 50 MG TAB PO SCH (09:04)
[2020-05-30] MEDS: metFORMIN 500 MG TAB PO SCH (09:04)
[2020-05-30] MEDS: ENOXAPARIN 40 MG/0.4 ML SYRINGE SQ SCH (09:04)
[2020-05-30] MEDS: PANTOPRAZOLE 40 MG/10 ML VIAL IV SCH (09:04)
[2020-05-30 10:56] VITALS: PULSE 88
[2020-05-30 11:42] LABS: Glucose,Whole Blood 96 mg/dL (75-99)
[2020-05-30] MEDS: SIMETHICONE 40 MG/0.6 ML DROPS 2,000 MG/30 ML BOTTLE PO PRN (12:19)
== END 2020-05-30 14:01 | disposition home or self-care (01) | DRG 621 ==
LOC: 2ORMAIN 08:19 → 4SSUR 12:16
PROVIDERS: ADMIT Surgery; ATTEND Surgery
PROC: 0DB64Z3 Excision of Stomach, Percutaneous Endoscopic Approach, Vertical (ICD-10-PCS; principal; 2020-05-28 09:55)
DX: E66.01 Morbid (severe) obesity due to excess calories (principal); K76.0 Fatty (change of) liver, not elsewhere classified; Z68.42 Body mass index [BMI] 45.0-49.9, adult; E11.9 Type 2 diabetes mellitus without complications; E78.5 Hyperlipidemia, unspecified; I10 Essential (primary) hypertension; G47.30 Sleep apnea, unspecified; B19.20 Unspecified viral hepatitis C without hepatic coma; M19.90 Unspecified osteoarthritis, unspecified site; E03.9 Hypothyroidism, unspecified; I83.90 Asymptomatic varicose veins of unspecified lower extremity; R09.02 Hypoxemia; Z71.3 Dietary counseling and surveillance; Z87.891 Personal history of nicotine dependence; Z79.890 Hormone replacement therapy; Z79.899 Other long term (current) drug therapy; Z79.84 Long term (current) use of oral hypoglycemic drugs; Z88.0 Allergy status to penicillin; Z91.040 Latex allergy status
CPT/HCPCS: 71045; 74240; 80048; 80051; 82310; 82565; 83735; 83880; 84100; 84484; 84520; 85025; 85379; 88307; 94640; 94760; 94762

== ENCOUNTER → 2020-06-02 | Outpatient (CLI) | payer OTHER ==
--- NOTE | 2020-05-30 15:01 | P.PN ---
Subjective 60-year-old male is admitted for bariatric surgery clinically doing well tolerating diet well and passing gas. Patient is being discharged today in stable medical condition to home patient is diabetic and does have elevated blood pressure patient the patient is well controlled on ANNE inhibitor and sugars are well controlled on his present regimen. No further recommendations from medical symptoms perspective can be discharged from medical perspective discharge medication reconciliation is reviewed. Constitutional: Denied any fatigue denied any fever. Cardio vascular: denied any chest pain, palpitations Gastrointestinal denied any nausea vomiting Pulmonary: Denied any shortness of breath cough Neurologic denied any new focal deficits All inpatient medications were reviewed and appropriate changes in these medications as dictated in the interval history and assessment and plan. Objective - Exam PHYSICAL EXAMINATION: GENERAL: The patient is alert and oriented x3, not in any acute distress. obese HEENT: Pupils are round and equally reacting to light. EOMI. No scleral icterus. No conjunctival pallor. Normocephalic, atraumatic. No pharyngeal erythema. No thyromegaly. CARDIOVASCULAR: S1 and S2 present. No murmurs, rubs, or gallops. PULMONARY: Chest is clear to auscultation, no wheezing or crackles. ABDOMEN: Soft, nontender, nondistended, normoactive bowel sounds. No palpable organomegaly. rectal site areas appear to be clean MUSCULOSKELETAL: No joint swelling or deformity. EXTREMITIES: No cyanosis, clubbing, or pedal edema. NEUROLOGICAL: Gross neurological examination did not reveal any focal deficits. SKIN: No rashes. Assessment and Plan Plan: -obesity status post bariatric surgery. Management as per primary service - type-2 diabetes mellitus blood sugars are well controlled that expected to go down once he starts losing weightbecause of which patient was asked to watch and monitor for blood sugars closely at home -hypertension1 continue with the home regimen of ANNE inhibitor well-controlled blood sugars -Obstructive sleep apnea and uses CPAP machine at home -Hyperthyroidism
[2020-06-02 16:08] VITALS: BP 142/77; PULSE 71; RESP 18; TEMP 98.2
== END | disposition home or self-care (01) ==
LOC: BARWHC3 10:39
PROVIDERS: ATTEND Surgery
DX: Z48.815 Encounter for surgical aftercare following surgery on the digestive system (principal); Z98.84 Bariatric surgery status
CPT/HCPCS: 99211; 99213

== ENCOUNTER → 2020-06-09 | Outpatient (CLI) | payer OTHER ==
[2020-06-09 13:10] VITALS: BP 143/64; PULSE 69; RESP 18; TEMP 98.3
[2020-06-09 13:41] VITALS: BMI 47.1
--- NOTE | 2020-06-19 11:56 | P.HPBAR ---
Bariatric H&P - History & Physicial H&P Date: 06/09/20 History & Physicial: Visit/CC: follow up post sx Patient initial contact: Initial weight: 156.092 kg Initial weight in pounds: 344.12 Height: 5 ft 8 in Initial BMI: Last weight: Current weight: 140.614 kg Current weight in pounds: Current BMI: 47.1 [place] body weight (based on NIH guidelines): 75.45 kg Excess body weight loss: The patient is a 60 year-old M who presents for Bariatric Assessment. Patient presents today for sleeve gastrectomy follow-up. He's had some mild GERD. Past Medical History Past Medical History: Diabetes Mellitus, Hyperlipidemia, Hypertension, Liver Disease, Osteoarthritis (OA), Sleep Apnea/CPAP/BIPAP, Thyroid Disorder Additional Past Medical History / Comment(s): varicose vein, fatty liver, heptitis C 15 yrs ago-tx History of Any Multi-Drug Resistant Organisms: None Reported Past Surgical History: Hernia Repair, Orthopedic Surgery Additional Past Surgical History / Comment(s): arthroscopy taurus knees, pain clinic procedure, Past Anesthesia/Blood Transfusion Reactions: No Reported Reaction Past Psychological History: No Psychological Hx Reported Smoking Status: Former smoker Past Alcohol Use History: None Reported Additional Past Alcohol Use History / Comment(s): QUIT SMOKING 2017, smoked on and off for 20 yrs Past Drug Use History: Marijuana Additional Drug Use History / Comment(s): last used 2 months ago - Past Family History Mother Family Medical History: Cancer Additional Family Medical History / Comment(s): breast Surgical - Exam Vital Signs Temp Pulse Resp BP 98.3 F 69 18 143/64 06/09/20 13:06 06/09/20 13:06 06/09/20 13:06 06/09/20 13:06 - General well developed, well nourished, no distress - Eyes PERRL - ENT normal pinna - Neck no masses - Respiratory normal expansion - Cardiovascular Rhythm: regular - Abdomen Abdomen: soft, non tender Bariatric Assessment & Plan Plan: Status post sleeve gastrectomy. Patient still quite well. There is minimal old observed. He'll follow-up in 4 weeks Bariatric Checklist Checklist: Plan: Checklist: EGD: 1. Hiatal hernia: 2. H. Pylori: HgbA1c: Vitamin D: Smoking: Primary care physician referral: [facility] Psychiatry clearance: Cardiology clearance: Sleep study: Diet journal: VTE risk score: VTE risk level: Rehab needs at discharge:
== END | disposition home or self-care (01) ==
LOC: BARWHC3 12:46
PROVIDERS: ATTEND Surgery
DX: Z48.815 Encounter for surgical aftercare following surgery on the digestive system (principal); E66.01 Morbid (severe) obesity due to excess calories; Z98.84 Bariatric surgery status; Z71.3 Dietary counseling and surveillance
CPT/HCPCS: 97803; 99211

== ENCOUNTER → 2020-06-30 | Outpatient (CLI) | payer OTHER ==
[2020-06-30 14:38] VITALS: BP 127/89; PULSE 80; RESP 18; TEMP 98.1; BMI 40.4
--- NOTE | 2020-06-30 15:35 | P.HPBAR ---
Bariatric H&P - History & Physicial H&P Date: 06/30/20 History & Physicial: Visit/CC: follow up 1 month Patient initial contact: Initial weight: 156.092 kg Initial weight in pounds: 344.12 Height: 5 ft 11 in Initial BMI: 47.9 Last weight: Current weight: 131.542 kg Current weight in pounds: 290.00 Current BMI: 40.4 [place] body weight (based on NIH guidelines): 78.018 kg Excess body weight loss: 31.4% The patient is a 60 year-old M who presents for Bariatric Assessment. Patient resents today for sleeve gastrectomy follow-up. He's had excellent weight loss. Patient has had some minimal GERD. He feels well otherwise. Past Medical History Past Medical History: Diabetes Mellitus, Hyperlipidemia, Hypertension, Liver Disease, Osteoarthritis (OA), Sleep Apnea/CPAP/BIPAP, Thyroid Disorder Additional Past Medical History / Comment(s): varicose vein, fatty liver, heptitis C 15 yrs ago-tx History of Any Multi-Drug Resistant Organisms: None Reported Past Surgical History: Hernia Repair, Orthopedic Surgery Additional Past Surgical History / Comment(s): arthroscopy taurus knees, pain clinic procedure, Past Anesthesia/Blood Transfusion Reactions: No Reported Reaction Past Psychological History: No Psychological Hx Reported Smoking Status: Former smoker Past Alcohol Use History: None Reported Additional Past Alcohol Use History / Comment(s): QUIT SMOKING 2017, smoked on and off for 20 yrs Past Drug Use History: Marijuana Additional Drug Use History / Comment(s): last used 2 months ago - Past Family History Mother Family Medical History: Cancer Additional Family Medical History / Comment(s): breast Surgical - Exam Vital Signs Temp Pulse Resp BP 98.1 F 80 18 127/89 06/30/20 14:32 06/30/20 14:32 06/30/20 14:32 06/30/20 14:32 - General well developed, well nourished, no distress - Eyes PERRL - ENT normal pinna - Neck no masses - Respiratory normal expansion - Cardiovascular Rhythm: regular - Abdomen Abdomen: soft, non tender Bariatric Assessment & Plan Plan: Status post sleeve gastrectomy. Patient still quite well. He will follow-up in 4 weeks. His GERD is minimal will be observed. Bariatric Checklist Checklist: Plan: Checklist: EGD: 1. Hiatal hernia: 2. H. Pylori: HgbA1c: Vitamin D: Smoking: Primary care physician referral: [facility] Psychiatry clearance: Cardiology clearance: Sleep study: Diet journal: VTE risk score: VTE risk level: Rehab needs at discharge:
[2020-06-30 16:00] LABS: HCT 44.8 % (39.0-53.0); Hypochromasia Slight; MCH 26.8 pg (25.0-35.0); MCHC 31.2 g/dL (31.0-37.0); MCV 85.9 fL (80.0-100.0); Mean Platelet Volume 10.1; Platelet Count 203 k/uL (150-450); RBC 5.22 m/uL (4.30-5.90); RDW 13.9 % (11.5-15.5); WBC 7.3 k/uL (3.8-10.6)
[2020-07-01 03:50] LABS: African American GFR (CKD) 95.1 (60.0-200.0); Albumin 4.2 g/dL (3.80-4.90); Albumin/Globulin Ratio 2.1 (1.60-3.17); Anion Gap 11.4 mmol/L (4.00-12.00); Calcium 9.6 mg/dL (8.7-10.3); Carbon Dioxide 23.6 mmol/L (21.6-31.8); Potassium 4.4 mmol/L (3.5-5.5); Total Bilirubin 0.8 mg/dL (0.3-1.2); Total Protein 6.2 g/dL (6.2-8.2)
[2020-07-01 04:01] LABS: Folate, Serum 6.7 ng/mL
== END | disposition home or self-care (01) ==
LOC: BARWHC3 13:35
PROVIDERS: ATTEND Surgery
DX: Z48.815 Encounter for surgical aftercare following surgery on the digestive system (principal); K21.9 Gastro-esophageal reflux disease without esophagitis; E66.01 Morbid (severe) obesity due to excess calories; Z71.3 Dietary counseling and surveillance; E44.0 Moderate protein-calorie malnutrition; E55.9 Vitamin D deficiency, unspecified; Z98.84 Bariatric surgery status
CPT/HCPCS: 80053; 82306; 82607; 82746; 84425; 84443; 85027; 99211

== ENCOUNTER → 2020-07-28 | Outpatient (CLI) | payer OTHER ==
[2020-07-28 14:31] VITALS: BMI 42.7
[2020-07-28 15:18] VITALS: BP 136/69; PULSE 65; TEMP 98.2
--- NOTE | 2020-07-29 11:16 | P.HPBAR ---
Bariatric H&P - History & Physicial H&P Date: 07/28/20 History & Physicial: Visit/CC: two month follow up Patient initial contact: Initial weight: 156.092 kg Initial weight in pounds: 344.12 Height: 5 ft 8 in Initial BMI: 52.3 Last weight: Current weight: 127.459 kg Current weight in pounds: 281.00 Current BMI: 42.7 [place] body weight (based on NIH guidelines): 69.853 kg Excess body weight loss: 33.2% The patient is a 60 year-old M who presents for Bariatric Assessment. Patient presents today for bariatric follow-up. He is doing quite well from his sleep gastrectomy. He's had minimal GERD. Past Medical History Past Medical History: Diabetes Mellitus, Hyperlipidemia, Hypertension, Liver Disease, Osteoarthritis (OA), Sleep Apnea/CPAP/BIPAP, Thyroid Disorder Additional Past Medical History / Comment(s): varicose vein, fatty liver, heptitis C 15 yrs ago-tx History of Any Multi-Drug Resistant Organisms: None Reported Past Surgical History: Hernia Repair, Orthopedic Surgery Additional Past Surgical History / Comment(s): arthroscopy taurus knees, pain clinic procedure, Past Anesthesia/Blood Transfusion Reactions: No Reported Reaction Past Psychological History: No Psychological Hx Reported Smoking Status: Former smoker Past Alcohol Use History: None Reported Additional Past Alcohol Use History / Comment(s): QUIT SMOKING 2017, smoked on and off for 20 yrs Past Drug Use History: Marijuana Additional Drug Use History / Comment(s): last used 2 months ago - Past Family History Mother Family Medical History: Cancer Additional Family Medical History / Comment(s): breast Surgical - Exam Vital Signs Temp Pulse BP 98.2 F 65 136/69 07/28/20 15:16 07/28/20 15:16 07/28/20 15:16 - General well developed, well nourished, no distress - Eyes PERRL - ENT normal pinna - Neck no masses - Respiratory normal expansion - Cardiovascular Rhythm: regular - Abdomen Abdomen: soft, non tender Bariatric Assessment & Plan Plan: Status post sleeve gastrectomy. Patient's girth is minimal was observed. He'll follow-up in 4 weeks. Bariatric Checklist Checklist: Plan: Checklist: EGD: 1. Hiatal hernia: 2. H. Pylori: HgbA1c: Vitamin D: Smoking: Primary care physician referral: [facility] Psychiatry clearance: Cardiology clearance: Sleep study: Diet journal: VTE risk score: VTE risk level: Rehab needs at discharge:
== END | disposition home or self-care (01) ==
LOC: BARWHC3 13:12
PROVIDERS: ATTEND Surgery
DX: Z48.815 Encounter for surgical aftercare following surgery on the digestive system (principal); E66.01 Morbid (severe) obesity due to excess calories; Z98.84 Bariatric surgery status; Z71.3 Dietary counseling and surveillance
CPT/HCPCS: 97803; 99211

== ENCOUNTER → 2020-09-01 | Outpatient (CLI) | payer OTHER ==
[2020-09-01 14:14] VITALS: BP 134/81; PULSE 67; RESP 18; TEMP 98.3; BMI 40.8
--- NOTE | 2020-09-15 11:28 | P.HPBAR ---
Bariatric H&P - History & Physicial H&P Date: 09/01/20 History & Physicial: Visit/CC: follow up / 3 months Patient initial contact: Initial weight: 156.092 kg Initial weight in pounds: 344.12 Height: 5 ft 8 in Initial BMI: 52.3 Last weight: Current weight: 122.016 kg Current weight in pounds: 269.00 Current BMI: 40.8 [place] body weight (based on NIH guidelines): 69.853 kg Excess body weight loss: 39.5% The patient is a 60 year-old M who presents for Bariatric Assessment. Patient p resents today for sleeve gastric band follow. He's had some mild GERD. He otherwise feels well. Past Medical History Past Medical History: Diabetes Mellitus, Hyperlipidemia, Hypertension, Liver Disease, Osteoarthritis (OA), Sleep Apnea/CPAP/BIPAP, Thyroid Disorder Additional Past Medical History / Comment(s): varicose vein, fatty liver, heptitis C 15 yrs ago-tx History of Any Multi-Drug Resistant Organisms: None Reported Past Surgical History: Hernia Repair, Orthopedic Surgery Additional Past Surgical History / Comment(s): arthroscopy taurus knees, pain clinic procedure, Past Anesthesia/Blood Transfusion Reactions: No Reported Reaction Past Psychological History: No Psychological Hx Reported Smoking Status: Former smoker Past Alcohol Use History: None Reported Additional Past Alcohol Use History / Comment(s): QUIT SMOKING 2017, smoked on and off for 20 yrs Past Drug Use History: Marijuana Additional Drug Use History / Comment(s): last used 2 months ago - Past Family History Mother Family Medical History: Cancer Additional Family Medical History / Comment(s): breast Surgical - Exam Vital Signs Temp Pulse Resp BP 98.3 F 67 18 134/81 09/01/20 14:10 09/01/20 14:10 09/01/20 14:10 09/01/20 14:10 - General well developed, well nourished, no distress - Eyes PERRL - ENT normal pinna - Neck no masses - Respiratory normal expansion - Cardiovascular Rhythm: regular - Abdomen Abdomen: soft, non tender Bariatric Assessment & Plan Plan: Status post sleeve gastrectomy. Patient's GERD is minimal user. He'll follow- up in 4 weeks. Bariatric Checklist Checklist: Plan: Checklist: EGD: 1. Hiatal hernia: 2. H. Pylori: HgbA1c: Vitamin D: Smoking: Primary care physician referral: [facility] Psychiatry clearance: Cardiology clearance: Sleep study: Diet journal: VTE risk score: VTE risk level: Rehab needs at discharge:
== END | disposition home or self-care (01) ==
LOC: BARWHC3 13:47
PROVIDERS: ATTEND Surgery
DX: Z48.815 Encounter for surgical aftercare following surgery on the digestive system (principal); Z98.84 Bariatric surgery status; K21.9 Gastro-esophageal reflux disease without esophagitis
CPT/HCPCS: 99211

== ENCOUNTER → 2020-09-29 | Outpatient (CLI) | payer OTHER ==
[2020-09-29 14:36] VITALS: BP 139/68; PULSE 62; RESP 16; TEMP 97.7; BMI 39.6
[2020-09-29 15:41] LABS: HCT 43.9 % (39.0-53.0); HGB 14.3 gm/dL (13.0-17.5); MCH 27.6 pg (25.0-35.0); MCHC 32.5 g/dL (31.0-37.0); MCV 84.8 fL (80.0-100.0); Mean Platelet Volume 8.9; Platelet Count 198 k/uL (150-450); RBC 5.18 m/uL (4.30-5.90); RDW 14.4 % (11.5-15.5); WBC 7.4 k/uL (3.8-10.6)
[2020-09-30 01:39] LABS: Ferritin 76.8 ng/mL (22.0-322.0)
[2020-09-30 01:52] LABS: % Iron Saturation 10.04 (15.00-50.00); African American GFR (CKD) 119.7 (60.0-200.0); Albumin 4.2 g/dL (3.80-4.90); Albumin/Globulin Ratio 2.21 (1.60-3.17); Anion Gap 7.5 mmol/L (4.00-12.00); BUN/Creat Ratio 22.86 Ratio (12.00-20.00); Calcium 9.5 mg/dL (8.7-10.3); Carbon Dioxide 26.5 mmol/L (21.6-31.8); Folate, Serum 13.5 ng/mL; Globulin 1.9 g/dL (1.6-3.3); Magnesium 1.8 mg/dL (1.5-2.4); Non-African American GFR(CKD) 103.3 (60.0-200.0); Potassium 4.4 mmol/L (3.5-5.5); Total Bilirubin 0.5 mg/dL (0.3-1.2); Total Protein 6.1 g/dL (6.2-8.2)
[2020-09-30 13:56] LABS: Zinc, Serum 64 ug/dL (60-130)
[2020-10-01 07:33] LABS: Vitamin A 28 ug/dL (38-106)
[2020-10-02 00:18] LABS: Selenium 112 mcg/L (63-160)
[2020-10-02 10:46] LABS: Vit B1(Thiamine) 63 ug/L (38-122)
--- NOTE | 2020-10-06 15:37 | P.HPBAR ---
Bariatric H&P - History & Physicial H&P Date: 09/29/20 History & Physicial: Visit/CC: F/u Patient initial contact: Initial weight: 156.092 kg Initial weight in pounds: 344.12 Height: 5 ft 8 in Initial BMI: 52.3 Last weight: Current weight: 118.388 kg Current weight in pounds: 261.00 Current BMI: 39.[address] body weight (based on NIH guidelines): 69.853 kg Excess body weight loss: 43.7% The patient is a 60 year-old M who presents for Bariatric Assessment. Patient presents today for follow-up. He has not been seen some time. He's had some issues with GERD. His weight is been stable at 261 pounds. Past Medical History Past Medical History: Diabetes Mellitus, Hyperlipidemia, Hypertension, Liver Disease, Osteoarthritis (OA), Sleep Apnea/CPAP/BIPAP, Thyroid Disorder Additional Past Medical History / Comment(s): varicose vein, fatty liver, heptitis C 15 yrs ago-tx History of Any Multi-Drug Resistant Organisms: None Reported Past Surgical History: Hernia Repair, Orthopedic Surgery Additional Past Surgical History / Comment(s): arthroscopy taurus knees, pain clinic procedure, umbilical hernia repair x 2 at [facility] Past Anesthesia/Blood Transfusion Reactions: No Reported Reaction Past Psychological History: No Psychological Hx Reported Smoking Status: Former smoker Past Alcohol Use History: None Reported Additional Past Alcohol Use History / Comment(s): QUIT SMOKING 2017, smoked on and off for 20 yrs Past Drug Use History: Marijuana Additional Drug Use History / Comment(s): last used 2 months ago - Past Family History Mother Family Medical History: Cancer Additional Family Medical History / Comment(s): breast Surgical - Exam Vital Signs Temp Pulse Resp BP 97.7 F 62 16 139/68 09/29/20 14:33 09/29/20 14:33 09/29/20 14:33 09/29/20 14:33 - General well developed, well nourished, no distress - Eyes PERRL - ENT normal pinna - Neck no masses - Respiratory normal expansion - Cardiovascular Rhythm: regular - Abdomen Abdomen: soft, non tender Results - Labs 09/29/20 15:19 09/29/20 15:19 Bariatric Assessment & Plan Plan: Morbid obesity, BMI 39. Patient is minimal and observed. He'll follow-up in 4 weeks. Bariatric Checklist Checklist: Plan: Checklist: EGD: 1. Hiatal hernia: 2. H. Pylori: HgbA1c: Vitamin D: Smoking: Primary care physician referral: [facility] Psychiatry clearance: Cardiology clearance: Sleep study: Diet journal: VTE risk score: VTE risk level: Rehab needs at discharge:
== END ==
LOC: BARWHC3 13:44
PROVIDERS: ATTEND Surgery
DX: E66.01 Morbid (severe) obesity due to excess calories (principal); Z68.39 Body mass index [BMI] 39.0-39.9, adult; E11.9 Type 2 diabetes mellitus without complications; E78.5 Hyperlipidemia, unspecified; I10 Essential (primary) hypertension; M19.90 Unspecified osteoarthritis, unspecified site; E03.9 Hypothyroidism, unspecified; Z87.891 Personal history of nicotine dependence; Z79.84 Long term (current) use of oral hypoglycemic drugs
CPT/HCPCS: 80053; 82306; 82607; 82728; 82746; 83540; 83550; 83735; 84255; 84425; 84443; 84590; 84630; 85027; 99211

== ENCOUNTER → 2020-12-08 | Outpatient (CLI) | payer OTHER ==
[2020-12-08 13:24] VITALS: BP 128/77; PULSE 55; RESP 18; TEMP 98.3; BMI 37.7
--- NOTE | 2020-12-08 16:03 | P.HPBAR ---
Bariatric H&P - History & Physicial H&P Date: 12/08/20 History & Physicial: Visit/CC: follow up Patient initial contact: Initial weight: 156.092 kg Initial weight in pounds: 344.12 Height: 5 ft 8 in Initial BMI: 52.3 Last weight: Current weight: 112.491 kg Current weight in pounds: 248.00 Current BMI: 37.7 [place] body weight (based on NIH guidelines): 69.853 kg Excess body weight loss: 50.5% The patient is a 60 year-old M who presents for Bariatric Assessment. Patient presents today for sleeve gastric her fall. He's had some mild GERD. He's had excellent weight loss. Past Medical History Past Medical History: Diabetes Mellitus, Hyperlipidemia, Hypertension, Liver Disease, Osteoarthritis (OA), Sleep Apnea/CPAP/BIPAP, Thyroid Disorder Additional Past Medical History / Comment(s): varicose vein, fatty liver, heptitis C 15 yrs ago-tx History of Any Multi-Drug Resistant Organisms: None Reported Past Surgical History: Hernia Repair, Orthopedic Surgery Additional Past Surgical History / Comment(s): arthroscopy taurus knees, pain clinic procedure, umbilical hernia repair x 2 at [facility] Past Anesthesia/Blood Transfusion Reactions: No Reported Reaction Past Psychological History: No Psychological Hx Reported Smoking Status: Former smoker Past Alcohol Use History: None Reported Additional Past Alcohol Use History / Comment(s): QUIT SMOKING 2017, smoked on and off for 20 yrs Past Drug Use History: Marijuana Additional Drug Use History / Comment(s): last used 2 months ago - Past Family History Mother Family Medical History: Cancer Additional Family Medical History / Comment(s): breast Surgical - Exam Vital Signs Temp Pulse Resp BP 98.3 F 55 L 18 128/77 12/08/20 13:16 12/08/20 13:16 12/08/20 13:16 12/08/20 13:16 - General well developed, well nourished, no distress - Eyes PERRL - Neck no masses - Respiratory normal expansion - Cardiovascular Rhythm: regular - Abdomen Abdomen: soft, non tender Bariatric Assessment & Plan Plan: Status post sleeve history. Patient appears minimal user. She'll follow-up in 4 weeks. Bariatric Checklist Checklist: Plan: Checklist: EGD: 1. Hiatal hernia: 2. H. Pylori: HgbA1c: Vitamin D: Smoking: Primary care physician referral: [facility] Psychiatry clearance: Cardiology clearance: Sleep study: Diet journal: VTE risk score: VTE risk level: Rehab needs at discharge:
== END ==
LOC: BARWHC3 12:46
PROVIDERS: ATTEND Surgery
DX: Z09 Encounter for follow-up examination after completed treatment for conditions other than malignant neoplasm (principal); K21.9 Gastro-esophageal reflux disease without esophagitis; E11.9 Type 2 diabetes mellitus without complications; E78.5 Hyperlipidemia, unspecified; I10 Essential (primary) hypertension; M19.90 Unspecified osteoarthritis, unspecified site; Z98.84 Bariatric surgery status; Z88.1 Allergy status to other antibiotic agents; Z91.040 Latex allergy status; Z87.891 Personal history of nicotine dependence
CPT/HCPCS: 99211

== ENCOUNTER → 2021-11-09 | Outpatient (CLI) | payer OTHER ==
[2021-11-09 13:23] VITALS: BP 133/84; PULSE 65; RESP 16; TEMP 98; BMI 35.5
--- NOTE | 2021-11-09 15:43 | P.HPBAR ---
Bariatric H&P - History & Physicial H&P Date: 11/09/21 History & Physicial: Visit/CC: sleeve f/u Patient initial contact: Initial weight: 156.092 kg Initial weight in pounds: 344.12 Height: 5 ft 11 in Initial BMI: 47.9 Last weight: Current weight: 115.666 kg Current weight in pounds: 255.00 Current BMI: 35.5 [place] body weight (based on NIH guidelines): 78.018 kg Excess body weight loss: 51.7% The patient is a 61 year-old M who presents for Bariatric Assessment. Patient presents today for sleeve gastric fall. He's had some complaints of GERD and some intermittent arthritis. He is otherwise doing well. Past Medical History Past Medical History: Diabetes Mellitus, Hyperlipidemia, Hypertension, Liver Disease, Osteoarthritis (OA), Sleep Apnea/CPAP/BIPAP, Thyroid Disorder Additional Past Medical History / Comment(s): varicose vein, fatty liver, heptitis C 15 yrs ago-tx History of Any Multi-Drug Resistant Organisms: None Reported Past Surgical History: Bariatric Surgery, Hernia Repair, Orthopedic Surgery Additional Past Surgical History / Comment(s): arthroscopy taurus knees, pain clinic procedure, umbilical hernia repair x 2 at [facility], gastric sleeve surgery Past Anesthesia/Blood Transfusion Reactions: No Reported Reaction Past Psychological History: No Psychological Hx Reported Smoking Status: Former smoker Past Alcohol Use History: None Reported Additional Past Alcohol Use History / Comment(s): QUIT SMOKING 2017, smoked on and off for 20 yrs Past Drug Use History: Marijuana Additional Drug Use History / Comment(s): last used 2 months ago - Past Family History Mother Family Medical History: Cancer Additional Family Medical History / Comment(s): breast Surgical - Exam Vital Signs Temp Pulse Resp BP 98 F 65 16 133/84 11/09/21 13:20 11/09/21 13:20 11/09/21 13:20 11/09/21 13:20 - General well developed, well nourished, no distress - Eyes PERRL - ENT normal pinna - Neck no masses - Respiratory normal expansion - Cardiovascular Rhythm: regular - Abdomen Abdomen: soft, non tender Bariatric Assessment & Plan Plan: Status post sleeve gastrectomy. Patient is minimal and will be observed. He'll follow-up in 4 weeks. Bariatric Checklist Checklist: Plan: Checklist: EGD: 1. Hiatal hernia: 2. H. Pylori: HgbA1c: Vitamin D: Smoking: Primary care physician referral: [facility] Psychiatry clearance: Cardiology clearance: Sleep study: Diet journal: VTE risk score: VTE risk level: Rehab needs at discharge:
[2021-11-09 18:26] LABS: HCT 48.3 % (39.6-50.0); HGB 15.1 g/dL (13.0-17.0); MCH 27.9 pg (27.0-32.0); MCHC 31.3 g/dL (32.0-37.0); MCV 89.1 fL (80.0-97.0); NRBC Per 100 WBC 0 /100 WBCS (0.0-0.0); Platelet Count 201 X 10*3/uL (140-440); RBC 5.42 X 10*6/uL (4.40-5.60); RDW 13.1 % (11.5-14.5); WBC 7.51 X 10*3/uL (4.50-10.00)
[2021-11-10 02:00] LABS: African American GFR (CKD) 107.7 (60.0-200.0); Albumin 4.6 g/dL (3.8-4.9); Albumin/Globulin Ratio 2.22 (1.60-3.17); Anion Gap 10.9 mmol/L (10.00-18.00); BUN/Creat Ratio 18.65 Ratio (12.00-20.00); Blood Urea Nitrogen 16.6 mg/dL (9.0-27.0); Calcium 9.8 mg/dL (8.7-10.3); Globulin 2.1 g/dL (1.6-3.3); Non-African American GFR(CKD) 92.9 (60.0-200.0); Total Protein 6.7 g/dL (6.2-8.2)
[2021-11-10 02:01] LABS: % Iron Saturation 14.76 (15.00-50.00); Magnesium 2.4 mg/dL (1.5-2.4); Total Bilirubin 0.5 mg/dL (0.30-1.20)
[2021-11-10 12:33] LABS: Zinc, Serum 73 ug/dL (60-130)
[2021-11-11 05:29] LABS: Vitamin A 54 ug/dL (38-106)
[2021-11-11 06:15] LABS: Vit B1(Thiamine) 85 ug/L (38-122)
== END ==
LOC: BARWHC3 12:57
PROVIDERS: ATTEND Surgery
DX: Z09 Encounter for follow-up examination after completed treatment for conditions other than malignant neoplasm (principal); K21.9 Gastro-esophageal reflux disease without esophagitis; M19.90 Unspecified osteoarthritis, unspecified site; E11.9 Type 2 diabetes mellitus without complications; E78.5 Hyperlipidemia, unspecified; I10 Essential (primary) hypertension; Z98.84 Bariatric surgery status; Z87.891 Personal history of nicotine dependence; Z88.0 Allergy status to penicillin; Z91.040 Latex allergy status
CPT/HCPCS: 36415; 80053; 82306; 82607; 82728; 82746; 83540; 83550; 83735; 84255; 84425; 84443; 84590; 84630; 85027; 99211

== ENCOUNTER → 2022-02-08 | Outpatient (CLI) | payer OTHER ==
[2022-02-08 13:51] VITALS: BP 149/77; PULSE 67; TEMP 97.4; BMI 35.2
--- NOTE | 2022-02-09 16:16 | P.HPBAR ---
Bariatric H&P - History & Physicial H&P Date: 02/08/22 History & Physicial: Visit/CC: sleeve f/u Patient initial contact: Initial weight: 156.092 kg Initial weight in pounds: 344.12 Height: 5 ft 11 in Initial BMI: 47.9 Last weight: Current weight: 114.759 kg Current weight in pounds: 253.00 Current BMI: 35.2 [place] body weight (based on NIH guidelines): 78.018 kg Excess body weight loss: 52.9% The patient is a 61 year-old M who presents for Bariatric Assessment. Patient presents today for gastric sleeve follow-up. His current weight is 253 pounds. His weight is 255 pounds. He has myoclonus of GERD. Past Medical History Past Medical History: Diabetes Mellitus, Hyperlipidemia, Hypertension, Liver Disease, Osteoarthritis (OA), Sleep Apnea/CPAP/BIPAP, Thyroid Disorder Additional Past Medical History / Comment(s): varicose vein, fatty liver, heptitis C 15 yrs ago-tx History of Any Multi-Drug Resistant Organisms: None Reported Past Surgical History: Bariatric Surgery, Hernia Repair, Orthopedic Surgery Additional Past Surgical History / Comment(s): arthroscopy taurus knees, pain clinic procedure, umbilical hernia repair x 2 at [facility], gastric sleeve surgery Past Anesthesia/Blood Transfusion Reactions: No Reported Reaction Past Psychological History: No Psychological Hx Reported Smoking Status: Former smoker Past Alcohol Use History: None Reported Additional Past Alcohol Use History / Comment(s): QUIT SMOKING 2017, smoked on and off for 20 yrs Past Drug Use History: Marijuana Additional Drug Use History / Comment(s): last used 2 months ago - Past Family History Mother Family Medical History: Cancer Additional Family Medical History / Comment(s): breast Surgical - Exam Vital Signs Temp Pulse BP 97.4 F L 67 149/77 02/08/22 13:47 02/08/22 13:47 02/08/22 13:47 - General well developed, well nourished, no distress - Eyes PERRL - ENT normal pinna - Neck no masses - Respiratory normal expansion - Cardiovascular Rhythm: regular - Abdomen Abdomen: soft, non tender Bariatric Assessment & Plan Plan: Resolving morbid obesity. Patient's BMI is 35. His GERD is minimal and will be observed. He'll follow-up in 4 weeks. Bariatric Checklist Checklist: Plan: Checklist: EGD: 1. Hiatal hernia: 2. H. Pylori: HgbA1c: Vitamin D: Smoking: Primary care physician referral: [facility] Psychiatry clearance: Cardiology clearance: Sleep study: Diet journal: VTE risk score: VTE risk level: Rehab needs at discharge:
== END ==
LOC: BARWHC3 13:11
PROVIDERS: ATTEND Surgery
DX: E66.01 Morbid (severe) obesity due to excess calories (principal); K21.9 Gastro-esophageal reflux disease without esophagitis; E11.9 Type 2 diabetes mellitus without complications; E78.5 Hyperlipidemia, unspecified; I10 Essential (primary) hypertension; M19.90 Unspecified osteoarthritis, unspecified site; Z98.84 Bariatric surgery status; Z68.35 Body mass index [BMI] 35.0-35.9, adult; Z79.899 Other long term (current) drug therapy; Z87.891 Personal history of nicotine dependence; Z91.040 Latex allergy status; Z88.0 Allergy status to penicillin
CPT/HCPCS: 99211